=== PATIENT | female | born 1975 | race Caucasian/White ===

== ENCOUNTER 2024-12-16 14:27 | Emergency (ER) | payer MEDICARE, MEDICAID ==
[~2024-12-16] VITALS: Ht 154.9 cm; Wt 86.0 kg
[2024-12-16 15:20] VITALS: O2SAT 100
[2024-12-16 17:32] LABS: BASOPHILS % 0.5 % (0.0-2.0); EOSINOPHILS % 1.3 % (0.0-5.0); HEMATOCRIT. 39.2 % (36.0-48.0); HEMOGLOBIN. 13.1 g/dL (12.0-16.0); LYMPHOCYTES % 35.4 % (20.0-50.0); MEAN PLATELET VOLUME 8.8 fl (7.4-10.4); MONOCYTES % 9.9 % (2.0-8.0); NEUTROPHILS % 52.9 % (40.0-76.0); PLATELET 266 x1000/uL (130-400); RED BLOOD CELL COUNT 4.08 mill/uL (4.2-5.4); RED CELL DISTRIBUTION WIDTH 14.1 % (11.6-14.6)
[2024-12-16 17:49] LABS: HCG SCREEN NEGATIVE
[2024-12-16 17:57] LABS: CREATININE 1.0 mg/dL (0.6-1.0); UREA NITROGEN BLOOD 12 mg/dL (9-23)
[2024-12-16 17:59] LABS: ASPARTATE AMINOTRANSFERASE 20 IU/L (<34); BILIRUBIN DIRECT 0.7 mg/dL (<=3.0); BILIRUBIN TOTAL 3.3 mg/dL (0.1-1.0); PROTEIN TOTAL 8.0 g/dL (6.0-8.3)
[2024-12-16 21:04] LABS: GLUCOSE URINE NEGATIVE (NEGATIVE); KETONES URINE 1+ (NEGATIVE); LEUKOCYTE ESTERASE URINE TRACE (NEGATIVE); NITRITE URINE NEGATIVE (NEGATIVE); OCCULT BLOOD URINE NEGATIVE (NEGATIVE); PH URINE 5.5 (4.5-8.0); PROTEIN URINE NEGATIVE (NEGATIVE); SPECIFIC GRAVITY URINE 1.010 (1.005-1.030); UROBILINOGEN URINE 0.2 E.U./dL (0.2-1.0)
[2024-12-16 21:22] LABS: COLOR URINE STRAW (YELLOW)
[2024-12-16 21:26] LABS: CLARITY URINE SL HAZY (CLEAR); RBC URINE NONE SEEN /hpf (0-2); WBC URINE 0-2 /hpf (0-2)
[2024-12-16 21:27] LABS: BACTERIA URINE TRACE; SQUAMOUS EPITHELIAL CELL URINE 1+ /lpf (RARE/1+)
[2024-12-17 02:24] VITALS: BP 138/94; PULSE 97; RESP 18; TEMP 36.6; O2SAT 98
== END 2024-12-17 02:31 | disposition home or self-care (01) ==
LOC: ER 14:27
DX: R10.84 Generalized abdominal pain (principal); K76.89 Other specified diseases of liver
CPT/HCPCS: 36415; 76705; 80048; 80076; 80320; 81003; 84703; 85025; 99284; G0480